=== PATIENT | female | born 1970 | race Caucasian/White ===

== ENCOUNTER 2018-11-04 19:34 | Emergency (ER) | payer MEDICAID ==
[~2018-11-04] VITALS: Ht 182.9 cm; Wt 95.3 kg
[~2018-11-04 19:34] MED LIST: AMIT50TA27 PO; PROP20TA29 PO; SUMA20SP8 NS; TIZA4TAB5 PO; TOP25 PO
[2018-11-04 19:43] VITALS: BP 115/76
--- NOTE | 2018-11-04 19:46 | NUR ---
TO LOBBY A/W BED, ODALIS YEN NOTED
--- NOTE | 2018-11-04 19:52 | NUR ---
TO ER BED 2
--- NOTE | 2018-11-04 19:55 | NUR ---
PT PRESENTS TO ED WITH C/O HEADACHE WITH NAUSEA. PT STATES PAIN IS 10/10, SHE USUALLY HAS BOTOX THAT RELIEVES HER MIGRAINES BUT IT HAS NOT HELPED HER THIS TIME. PT AAOX4 AND ANSWERING QUESTIONS APPROPRIATELY. DENIES NUMBNESS OR TINGLING TO HAND/FINGERS/TOES. PT PLACED IN COMFORTABLE POSITION, MADE AWARE.
[2018-11-04] MEDS ORDERED: KETOROLAC 30 MG/ML VIAL IVP ONE (20:05)
[2018-11-04] MEDS ORDERED: PROCHLORPERAZINE 10 MG/2 ML VIAL IVP ONE (20:05)
[2018-11-04] MEDS ORDERED: diphenhydrAMINE 50 MG/ML VIAL IVP ONE (20:05)
[2018-11-04] MEDS ORDERED: [UNRECOGNIZED DRUG - CODE] PO (20:10)
[2018-11-04] MEDS ORDERED: FLUO60TA PO (20:10)
[2018-11-04] MEDS ORDERED: NACL 0.9% 1,000 ML IV ONE (20:15)
[2018-11-04 21:15] VITALS: BP 96/55
--- NOTE | 2018-11-04 21:15 | NUR ---
Patient discharged with v/s stable. Written and verbal after care instructions given and explained. Patient verbalized understanding. Ambulatory with steady gait. All questions addressed prior to discharge. Advised to follow up with PMD.
== END 2018-11-04 21:15 | disposition home or self-care (01) ==
LOC: MED 19:34
DX: G43.909 Migraine, unspecified, not intractable, without status migrainosus (principal); E07.9 Disorder of thyroid, unspecified; Z79.899 Other long term (current) drug therapy
CPT/HCPCS: 96374; 96375; 99283; J0780; J1200; J1885; J7030

== ENCOUNTER 2019-01-15 16:33 | Emergency (ER) | payer MEDICAID ==
[~2019-01-15] VITALS: Ht 182.9 cm; Wt 99.8 kg
[~2019-01-15 16:33] MED LIST changes: +FLUO60TA PO; +[UNRECOGNIZED DRUG - CODE] PO
[2019-01-15 16:36] VITALS: BP 150/90
--- NOTE | 2019-01-15 16:43 | NUR ---
PT ABULATED TO ED BED 08
[2019-01-15] MEDS ORDERED: PROCHLORPERAZINE 10 MG/2 ML VIAL IVP ONE (16:50)
[2019-01-15] MEDS ORDERED: KETOROLAC 30 MG/ML VIAL IVP ONE (16:50)
[2019-01-15] MEDS ORDERED: NACL 0.9% 1,000 ML IV ONE (16:50)
--- NOTE | 2019-01-15 16:57 | NUR ---
PT PRESENTS TO ED WITH C/O HEADACHE SINCE MORNING, THROBBING LIKE PAIN, WORSEN WITH LIGHT. TOOK SUMATRIPTAN 100 MG 2 HRS AGO, PAIN NOT RELIEVED. AAO X4, GCS 15, ABLE TO SPEAK WITH FULL COMPLETE SENTENCES. PUPILS PERRL 3/3 MM. RESPIATIONS EVEN AND UNLABORED, BL LUNG CLEAR. SKIN WAMR/PALE/DRY, +PMSC. AMBULATORY WITH STDEAY GAIT. VS WNL, STATED HEADACHE 9/10. ED PROVIDER MADE AWARE OF PT STATUS
[2019-01-15 18:15] VITALS: BP 123/78
== END 2019-01-15 18:15 | disposition home or self-care (01) ==
LOC: MED 16:33
DX: G43.909 Migraine, unspecified, not intractable, without status migrainosus (principal); E07.9 Disorder of thyroid, unspecified; Z79.899 Other long term (current) drug therapy
CPT/HCPCS: 81002; 81025; 96374; 96375; 99283; J0780; J1885; J7030; Q0163

== ENCOUNTER 2021-03-16 12:33 | Emergency (ER) | payer MEDICAID, SELFPAY ==
[~2021-03-16] VITALS: Ht 182.9 cm; Wt 90.7 kg
[2021-03-16 12:53] VITALS: BP 120/71
[2021-03-16] MEDS ORDERED: NACL 0.9% 1,000 ML IV SCH (12:55)
--- NOTE | 2021-03-16 12:58 | NUR ---
PT TAKEN TO BED 10.
--- NOTE | 2021-03-16 13:05 | NUR ---
50/F presents to ED with c/o abdominal cramping, diarrhea and nausea. Patient states for 2 days cramping has been worsening with no relief, states she has limited appetite and noticed her diarrhea was "black and watery," states 10/10 pain with constant nausea. Denies vomiting, dysuria or hematuria, chest pain or sob. Patient states she contacted her PCP and was told to come to ED, patient placed in gown on bedside warehouse order selector.
--- NOTE | 2021-03-16 13:13 | NUR ---
COVID NOVEL AND COVID AKIKO SWAB TAKEN BEDSIDE AND WALKED OVER TO LAB
--- NOTE | 2021-03-16 13:14 | NUR ---
UA COLLECTED BEDSIDE AND WALKED OVER TO LAB
--- NOTE | 2021-03-16 13:15 | NUR ---
Labs collected bedside and hand to [facility].
[2021-03-16 13:20] LABS: APPEARANCE,URINE HAZY (CLEAR); BILIRUBIN,URINE 1+ (NEGATIVE); BLOOD, URINE 3+ (NEGATIVE); COLOR,URINE ORANGE (YELLOW); LEUKOCYTE ESTERASE ,URINE TRACE (NEGATIVE); NITRITE, URINE NEGATIVE (NEGATIVE); PH,URINE 6.5 (5.0-9.0); UGLUCOSE NEGATIVE (NEGATIVE)
--- NOTE | 2021-03-16 13:26 | NUR ---
Patient taken to CT by wheel chair.
[2021-03-16 13:29] LABS: RBC,URINE TOO NUMEROUS TO COUN /HPF (0-5); WBC,URINE 0-5 /HPF (0-5)
[2021-03-16 13:34] LABS: BASOPHILS % (AUTO) 0.4 % (0.0-2.0); EOSINOPHILS # (AUTO) 0.1 K/uL (0-0.4); EOSINOPHILS % (AUTO) 1.2 % (0.0-4.0); HEMATOCRIT 39.4 % (36-48); HEMOGLOBIN 13.4 g/dL (12.0-16.0); LYMPHOCYTES # (AUTO) 1.5 K/uL (2.5-16.5); LYMPHOCYTES % (AUTO) 18.3 % (20.5-51.1); MEAN CORPUSCULAR HEMOGLOBIN 32 pg (27-31); MEAN CORPUSCULAR HGB CONC 34 g/dL (33-37); MEAN CORPUSCULAR VOLUME 93.1 fL (80-94); MONOCYTES # (AUTO) 0.9 K/uL (0.8-1.0); MONOCYTES % (AUTO) 11.2 % (1.7-9.3); NEUTROPHILS # (AUTO) 5.5 K/uL (1.8-7.7); NEUTROPHILS % (AUTO) 68.9 % (42.2-75.2); PLATELET COUNT (AUTO) 240 K/uL (140-450); RED BLOOD CELL COUNT(AUTO) 4.23 MIL/uL (4.20-5.40); RED CELL DISTRIBUTION WIDTH 13.4 % (11.6-13.7)
--- NOTE | 2021-03-16 13:35 | NUR ---
Patient returned from CT
[2021-03-16 14:05] LABS: ALBUMIN 3.8 g/dL (3.4-5.0); ANION GAP 13.8 (8-16); CARBON DIOXIDE 23.7 mmol/L (21-32); CREATININE 0.8 mg/dL (0.6-1.3); POTASSIUM 3.5 mmol/L (3.5-5.1); TOTAL BILIRUBIN 0.3 mg/dL (0.0-1.0)
[2021-03-16] MEDS ORDERED: FAMOTIDINE 20 MG/2 ML VIAL IVP ONE (14:15)
[2021-03-16] MEDS ORDERED: KETOROLAC 15 MG/ML VIAL IVP ONE (14:15)
[2021-03-16] MEDS ORDERED: ONDANSETRON 4 MG/2 ML VIAL IVP ONE (14:15)
[2021-03-16] MEDS ORDERED: ONDA-24 PO (14:32)
[2021-03-16] MEDS ORDERED: ATRO1TAB PO (14:32)
[2021-03-16 14:50] VITALS: BP 116/58
--- NOTE | 2021-03-16 14:50 | NUR ---
Patient discharged with v/s stable. Written and verbal after care instructions given and explained. Patient alert, oriented and verbalized understanding of instructions. Ambulatory with steady gait. All questions addressed prior to discharge. ID band removed. Patient advised to follow up with PMD. Rx of Lomotil and Zofran given. Patient educated on indication of medication including possible reaction and side effects. Opportunity to ask questions provided and answered.
[2021-03-16 15:50] LABS: PROTHROMBIN TIME 9.1 secs (10.8-13.4)
== END 2021-03-16 14:50 | disposition home or self-care (01) ==
LOC: MED 12:33
DX: R19.7 Diarrhea, unspecified (principal); Z20.822 Contact with and (suspected) exposure to COVID-19; R11.0 Nausea; R10.9 Unspecified abdominal pain; E07.9 Disorder of thyroid, unspecified; F17.200 Nicotine dependence, unspecified, uncomplicated; Z79.899 Other long term (current) drug therapy; Z98.890 Other specified postprocedural states
CPT/HCPCS: 36415; 74176; 80053; 81001; 81025; 83605; 85025; 85610; 85730; 87040; 87426; 93005; 96361; 96374; 96375; 99285; J1885; J2405; J3490; J7030; U0003

== ENCOUNTER 2023-09-15 12:10 | Emergency (ER) | payer OTHER, MEDICAID ==
[~2023-09-15] VITALS: Ht 180.3 cm; Wt 99.8 kg
[~2023-09-15 12:10] MED LIST changes: -AMIT50TA27 PO; +ATRO1TAB PO; -FLUO60TA PO; +ONDA-188 PO; -PROP20TA29 PO; -SUMA20SP8 NS; -TIZA4TAB5 PO; -TOP25 PO; -[UNRECOGNIZED DRUG - CODE] PO
[2023-09-15 12:12] VITALS: BP 134/83; PULSE 61; RESP 16; TEMP 97.9; O2SAT 100
[2023-09-15] MEDS ORDERED: METOCLOPRAMIDE 10 MG/2 ML INJ VIAL IVP ONE (12:40)
[2023-09-15] MEDS ORDERED: KETOROLAC 30 MG/ML VIAL IVP ONE (12:40)
[2023-09-15] MEDS ORDERED: NACL 0.9% 1,000 ML IV SCH (12:40)
[2023-09-15] MEDS ORDERED: diphenhydrAMINE 50 MG/ML VIAL IVP ONE (12:40)
[2023-09-15 13:04] LABS: BASOPHILS % (AUTO) 0.5 % (0.0-2.0); EOSINOPHILS # (AUTO) 0.1 K/uL (0-0.4); EOSINOPHILS % (AUTO) 1.3 % (0.0-4.0); HEMATOCRIT 39.8 % (36-48); HEMOGLOBIN 13.8 g/dL (12.0-16.0); LYMPHOCYTES # (AUTO) 1.6 K/uL (2.5-16.5); LYMPHOCYTES % (AUTO) 20.9 % (20.5-51.1); MEAN CORPUSCULAR HEMOGLOBIN 32 pg (27-31); MEAN CORPUSCULAR HGB CONC 35 g/dL (33-37); MEAN CORPUSCULAR VOLUME 93.6 fL (80-94); MONOCYTES # (AUTO) 0.8 K/uL (0.8-1.0); MONOCYTES % (AUTO) 10.7 % (1.7-9.3); NEUTROPHILS % (AUTO) 66.6 % (42.2-75.2); PLATELET COUNT (AUTO) 186 K/uL (140-450); RED BLOOD CELL COUNT(AUTO) 4.26 MIL/uL (4.20-5.40); RED CELL DISTRIBUTION WIDTH 13.3 % (11.6-13.7); WHITE BLOOD COUNT (AUTO) 7.6 K/uL (4.8-10.8)
[2023-09-15 13:15] LABS: ANION GAP 9.9 (8-16); CALCIUM 8.8 mg/dL (8.5-10.1); CARBON DIOXIDE 29.4 mmol/L (21-32); CREATININE 0.9 mg/dL (0.6-1.3); POTASSIUM 4.3 mmol/L (3.5-5.1)
[2023-09-15 13:20] LABS: ALBUMIN 3.4 g/dL (3.4-5.0); BILIRUBIN,DIRECT 0.1 mg/dL (0.0-0.3); TOTAL BILIRUBIN 0.4 mg/dL (0.0-1.0); TOTAL PROTEIN, SERUM 7.2 g/dL (6.4-8.2)
[2023-09-15 15:43] VITALS: BP 136/71; PULSE 66; RESP 16; TEMP 98; O2SAT 99
== END 2023-09-15 15:44 | disposition home or self-care (01) ==
LOC: MED 12:10
DX: G43.909 Migraine, unspecified, not intractable, without status migrainosus (principal); R11.2 Nausea with vomiting, unspecified; E03.9 Hypothyroidism, unspecified; Z79.899 Other long term (current) drug therapy
CPT/HCPCS: 36415; 70450; 80048; 80076; 82948; 85025; 93005; 96361; 96374; 96375; 99285; J1200; J1885; J2765; J7030

== ENCOUNTER 2024-05-04 16:15 | Emergency (ER) | payer OTHER, MEDICAID ==
[~2024-05-04] VITALS: Ht 182.9 cm; Wt 98.9 kg
[2024-05-04 16:21] VITALS: BP 138/68; PULSE 59; RESP 21; TEMP 98.2; O2SAT 99
[2024-05-04 16:54] LABS: APPEARANCE,URINE CLEAR (CLEAR); BILIRUBIN,URINE NEGATIVE (NEGATIVE); BLOOD, URINE TRACE-I (NEGATIVE); COLOR,URINE YELLOW (YELLOW); LEUKOCYTE ESTERASE ,URINE NEGATIVE (NEGATIVE); NITRITE, URINE NEGATIVE (NEGATIVE); PROTEIN,URINE NEGATIVE (NEGATIVE); UGLUCOSE NEGATIVE (NEGATIVE); UROBILINOGEN,URINE 0.2 EU/dL (0.2 - 1)
[2024-05-04] MEDS ORDERED: MORPHINE SULFATE 4 MG/ML SYR IVP ONE (17:20)
[2024-05-04 17:37] LABS: BASOPHILS % (AUTO) 0.3 % (0.0-2.0); EOSINOPHILS # (AUTO) 0.1 K/uL (0-0.4); EOSINOPHILS % (AUTO) 1.5 % (0.0-4.0); HEMATOCRIT 39.8 % (36-48); HEMOGLOBIN 13.7 g/dL (12.0-16.0); LYMPHOCYTES % (AUTO) 27.4 % (20.5-51.1); MEAN CORPUSCULAR HEMOGLOBIN 32 pg (27-31); MEAN CORPUSCULAR HGB CONC 34 g/dL (33-37); MEAN CORPUSCULAR VOLUME 93.2 fL (80-94); MONOCYTES # (AUTO) 0.8 K/uL (0.8-1.0); MONOCYTES % (AUTO) 10.9 % (1.7-9.3); NEUTROPHILS # (AUTO) 4.4 K/uL (1.8-7.7); NEUTROPHILS % (AUTO) 59.9 % (42.2-75.2); PLATELET COUNT (AUTO) 186 K/uL (140-450); RED BLOOD CELL COUNT(AUTO) 4.27 MIL/uL (4.20-5.40); RED CELL DISTRIBUTION WIDTH 12.9 % (11.6-13.7); WHITE BLOOD COUNT (AUTO) 7.4 K/uL (4.8-10.8)
[2024-05-04] MEDS: ONDANSETRON 4 MG/2 ML VIAL IVP ONE (17:51)
[2024-05-04] MEDS: NACL 0.9% 1,000 ML IV ONE (17:52)
[2024-05-04 18:03] LABS: ALBUMIN 3.8 g/dL (3.4-5.0); ANION GAP 12.5 (8-16); CALCIUM 8.7 mg/dL (8.5-10.1); CARBON DIOXIDE 26.9 mmol/L (21-32); POTASSIUM 3.4 mmol/L (3.5-5.1); TOTAL BILIRUBIN 0.3 mg/dL (0.0-1.0); TOTAL PROTEIN, SERUM 6.6 g/dL (6.4-8.2)
[2024-05-04] MEDS ORDERED: ALUMINUM HYD/MAG/SIMETHICONE 30 ML UDC ONE (18:40)
[2024-05-04] MEDS ORDERED: DICYCLOMINE HCL LIQUID 10 MG/5 ML UDC ONE (18:41)
[2024-05-04] MEDS: DICYCLOMINE HCL LIQUID 20 MG, ALUMINUM HYD/MAG/SIMETHICONE 30 ML, LIDOCAINE VISCOUS 2% ... PO ONE (18:50)
[2024-05-04] MEDS: MORPHINE SULFATE 2 MG/ML SYR IVP STA (18:51)
[2024-05-04] MEDS: diphenhydrAMINE 50 MG/ML VIAL IVP ONE (18:52)
[2024-05-04 19:46] VITALS: O2SAT 95
[2024-05-04] MEDS ORDERED: MAG355OR2 PO (20:06)
[2024-05-04] MEDS ORDERED: BEN10 PO (20:07)
[2024-05-04] MEDS ORDERED: HYDR25CA1 PO (20:07)
[2024-05-04] MEDS ORDERED: FAMO-90 PO (20:07)
[2024-05-04 20:35] VITALS: BP 111/62; PULSE 45; RESP 18; TEMP 98.2; O2SAT 97
== END 2024-05-04 20:35 | disposition home or self-care (01) ==
LOC: MED 16:15
DX: K29.70 Gastritis, unspecified, without bleeding (principal); F43.9 Reaction to severe stress, unspecified; Z87.891 Personal history of nicotine dependence; Z79.899 Other long term (current) drug therapy
CPT/HCPCS: 36415; 71045; 74177; 80053; 81003; 83690; 85025; 93005; 96361; 96374; 96375; 99285; J1200; J2270; J2405; J7030; Q0092; Q9967